=== PATIENT | female | born 2000 | race Two or more races ===

== ENCOUNTER 2021-12-28 13:10 | Observation (INO) | payer MEDICAID ==
[~2021-12-28] VITALS: Ht 165.1 cm; Wt 59.0 kg
== END 2021-12-28 17:26 | disposition home or self-care (01) ==
LOC: UNDOADMOB 13:10 → LDRP 13:10
PROVIDERS: ADMIT Obstetrics & Gynecology; ATTEND Obstetrics & Gynecology
DX: O62.9 Abnormality of forces of labor, unspecified (principal); Z3A.39 39 weeks gestation of pregnancy
CPT/HCPCS: 59025; 76805; 81002; 84112; G0378; Q0114

== ENCOUNTER 2021-12-29 05:49 | Inpatient (IN) | payer MEDICAID ==
[~2021-12-29] VITALS: Ht 152.4 cm; Wt 59.0 kg
[2021-12-29] MEDS ORDERED: LACTATED RINGER'S 1,000 ML IV SCH ×2 (06:00→06:30)
[2021-12-29] MEDS ORDERED: BUTORPHANOL TARTRATE 2 MG/1 ML VIAL IV PRN ×2 (06:00)
[2021-12-29] MEDS ORDERED: LIDOCAINE 2%HCL (LOCAL ANESTH.) INJ 10ml MDV IJ PRN (06:00)
[2021-12-29] MEDS ORDERED: PHISODERM TOP SOLN 240ML BTL TOP PRN (06:00)
[2021-12-29] MEDS ORDERED: PROMETHAZINE HCL 25 MG/ML 1ML IV PRN ×2 (06:00→06:30)
[2021-12-29 06:31] LABS: Basophils # (auto) 0 10 ^3/uL (0-0.2); Basophils % (auto) 0.2 % (0.0-2.0); Eosinophils # (auto) 0 10 ^3/uL (0-0.8); Eosinophils % (auto) 0.2 % (0.0-7.0); Hematocrit 36.8 % (36.0-46.0); Hemoglobin 12.8 g/dL (12.2-16.2); Lymphocytes # (auto) 3.3 10 ^3/uL (0.4-5.4); Lymphocytes % (auto) 21.5 % (10.0-50.0); Mean Corpuscular Hemoglobin 31.6 pg (28.0-32.0); Mean Corpuscular Hgb Conc. 34.7 g/dL (32.0-36.0); Mean Corpuscular Volume 90.8 fL (80.0-100.0); Monocytes # (auto) 0.9 10 ^3/uL (0-1.3); Monocytes % (auto) 5.9 % (0.0-12.0); Neutrophils % (auto) 72.2 % (37.0-80.0); Red Blood Cells 4.05 10^6/uL (4.0-5.20); Red Cell Distribution Width 13.3 % (11.8-14.3); White Blood Cell 15.3 10^3/uL (4.4-10.8)
[2021-12-29 06:43] LABS: INR 0.88 (0.9-1.15); Partial Thromboplastin Time 29.1 sec (24.6-33.4)
[2021-12-29 06:47] LABS: Albumin 2.7 g/dL (3.4-5.0); Calcium 7.9 mg/dL (8.5-10.1); Potassium 3.7 mmol/L (3.5-5.1)
[2021-12-29 06:50] LABS: BUN/Creatinine Ratio 17.6; Bilirubin, Total 0.5 mg/dL (0.2-1.0); Total Protein 6.2 g/dL (6.4-8.2)
[2021-12-29] MEDS ORDERED: PENICILLIN G POT 5MIL/D5 50ML 50 ML IV ONE (07:00)
[2021-12-29] MEDS ORDERED: LIDOCAINE 2%HCL (LOCAL ANESTH.) INJ 20ML MDV ONE (07:24)
[2021-12-29] MEDS ORDERED: miSOPROStol 100 mcg TAB SL PRN (07:30)
[2021-12-29] MEDS ORDERED: miSOPROStol 100 mcg TAB PR PRN (07:30)
[2021-12-29] MEDS ORDERED: METHYLERGONOVINE MALEATE 0.2 MG/ML AMP IM PRN (07:30)
[2021-12-29] MEDS ORDERED: LACT. RINGERS/OXYTOCIN 20UNITS 500 ML IV ONE ×2 (07:30→08:00)
[2021-12-29] MEDS ORDERED: fentaNYL CITRATE 100 MCG/2 ML VL ONE (08:14)
[2021-12-29] MEDS ORDERED: ROPIVACAINE HCL 200 ML EPI SCH (08:15)
[2021-12-29] MEDS ORDERED: ePHEDrine SULFATE 50 MG/ML AMP IV ONE (08:15)
[2021-12-29] MEDS ORDERED: NALOXONE HCL 0.4 MG/ML VIAL IV ONE (08:15)
[2021-12-29] MEDS ORDERED: fentaNYL CITRATE 100 MCG/2 ML VL IV ONE (08:15)
[2021-12-29 09:18] LABS: Urine Bacteria NONE SEEN /hpf (None Seen); Urine WBC 3 /hpf (0 - 5)
[2021-12-29 09:26] LABS: Urine Specific Gravity 1.005 (1.001-1.035)
[2021-12-29 09:27] LABS: Urine Blood Trace /uL (Negative)
[2021-12-29 09:32] LABS: Alcohol, Urine < 3.0 mg/dL (0-10); Amphetamine Screen, Urine NEGATIVE (NEGATIVE); Barbiturate Scree,Urine NEGATIVE (NEGATIVE); Benzodiazephine Screen, Urine NEGATIVE (NEGATIVE); Cannabinoid Screen, Urine POSITIVE (NEGATIVE); Cocaine Screen, Urine NEGATIVE (NEGATIVE); Phencyclidine Screen, Urine NEGATIVE (NEGATIVE)
[2021-12-29 09:39] LABS: Opiate Scree,Urine NEGATIVE (NEGATIVE)
[2021-12-29] MEDS ORDERED: LACT. RINGERS/OXYTOCIN 20UNITS 1,000 ML IV SCH (10:45)
[2021-12-29] MEDS ORDERED: PENICILLIN G POTASSIUM 2,500,000 UNITS in D5W 5% 50 ML IV SCH (11:00)
[2021-12-29] MEDS: WITCH HAZEL-GLYCERIN PAD TOP PRN (12:51)
[2021-12-29] MEDS: DERMOPLAST 60ML BOTTLE TOP PRN (12:51)
[2021-12-29] MEDS: IBUPROFEN 600 MG TAB PO PRN ×2 (14:25→20:18)
[2021-12-29 15:00] VITALS: BP 121/81
[2021-12-29] MEDS: ACETAMINOPHEN 325 MG TAB PO PRN ×2 (17:03→22:49)
[2021-12-29 19:30] VITALS: BP 112/67
[2021-12-29 23:00] VITALS: BP 118/71
[2021-12-30 03:00] VITALS: BP 103/56
[2021-12-30] MEDS: ACETAMINOPHEN 325 MG TAB PO PRN (04:42)
[2021-12-30 07:00] VITALS: BP 116/79
[2021-12-30 07:07] LABS: RPR Non Reactive (Non Reactive)
[2021-12-30] MEDS: WITCH HAZEL-GLYCERIN PAD TOP PRN ×2 (07:59→13:21)
[2021-12-30] MEDS: IBUPROFEN 600 MG TAB PO PRN (08:02)
[2021-12-30] MEDS ORDERED: HYDROcodone-ACET 5/325MG TAB PO PRN ×2 (08:30→09:15)
[2021-12-30 11:00] VITALS: BP 107/67
[2021-12-30 12:35] VITALS: BP 107/67
[2021-12-30] MEDS: DERMOPLAST 60ML BOTTLE TOP PRN (13:21)
== END 2021-12-30 13:22 | disposition home or self-care (01) | DRG 560 ==
LOC: LDRP 05:49 → OBSVTOIN 05:50 → LDRP 05:52
PROVIDERS: ADMIT Obstetrics & Gynecology; ATTEND Obstetrics & Gynecology
PROC: 10E0XZZ Delivery of Products of Conception, External Approach (ICD-10-PCS; principal; 2021-12-29)
PROC: 0KQM0ZZ Repair Perineum Muscle, Open Approach (ICD-10-PCS; 2021-12-29)
PROC: 0W8NXZZ Division of Female Perineum, External Approach (ICD-10-PCS; 2021-12-29)
PROC: 3E0R3BZ Introduction of Anesthetic Agent into Spinal Canal, Percutaneous Approach (ICD-10-PCS; 2021-12-29)
PROC: 00HU33Z Insertion of Infusion Device into Spinal Canal, Percutaneous Approach (ICD-10-PCS; 2021-12-29)
DX: O69.81X0 Labor and delivery complicated by cord around neck, without compression, not applicable or unspecified (principal); Z37.0 Single live birth; O70.1 Second degree perineal laceration during delivery; Z20.822 Contact with and (suspected) exposure to COVID-19; Z3A.39 39 weeks gestation of pregnancy
CPT/HCPCS: 36415; 59025; 59409; 62282; 80053; 80307; 81001; 81002; 85025; 85610; 85730; 86592; 86850; 86900; 86901; 87426; 94762; 96361; 96365; 96366; G0378; J2540; J2590; J7060